=== PATIENT | female | born 1980 | race Hispanic/Latino ===

== ENCOUNTER 2024-10-21 21:58 | Emergency (ER) | payer OTHER ==
--- OUTSIDE RECORDS SUMMARY | 2024-10-21 22:02 | XMS REPORT | Continuity of Care Document ---
Author Name Unknown Address [address] [place] [address] [address]. [address] [place] [address] [facility] Address [address] [facility] [address] [place] [address] Care Team Providers Care Recruiting Specialist Name Role Phone Pcp, Patient Does Not Have A Primary Care Physic michelle Nyla Davis Attending Clinician [phone] NYLA GARCÍA Attending Clinician Unavailable Doctor Unassigned, [place] Attending Clinician U CHER Calderon Attending Clinician Unavailable DORIE BLAKE Attending Clinician UnavailDORIE Carlson Attending Clinician Unavaila alfredo Payers Payer Name Policy Type Policy Number Effective Date Expirati on Date Source HIRAL JOLLY [id number] 2024 00:00:00 Problems Condition Name Condition Details Condition Category Status Onset Date Resolution Date Last Treatment Date Treating Clinician Comments Source Pain pelvic Pain pelvic Disease Active - 00:00: 00 [facility] Dysuria Dysuria Disease Active 8- 00:00: 00 [facility] Nausea Nausea Disease Active 8- 00:00: 00 [facility] History of UTI History of UTI Disease Active 8- 00:00: 00 [facility] Allergies, Adverse Reactions, Alerts Allergy Name Allergy Type Status Severity Reaction(s) Onset Date Inactive Date Treating Clinician Comments Source NO KNOWN ALLERGIE S Drug Class Active [facility] Social History Social Habit Start Date Stop Date Quantity Comments Source ASSERTION Not [facility] of tobacco use Passive smoker [facility] History SDOH Alcohol Frequency [facility] History SDOH Alcohol Std Drinks [facility] History SDOH Alcohol Binge [facility] Alcoholic beverage intake 2024-10-21 00:00:00 2024-10-21 00:00:00 Current drinker of alcohol (finding) [facility] History of Social function 2024-10-21 00:00:00 2024-10-21 00:00:00 [facility] Tobacco use and exposure 2022-01-10 00:00:00 2022-01-10 00:00:00 Smokeless tobacco non-user [facility] Alcohol intake 2022-01-10 00:00:00 2022-01-10 00:00:00 Current drinker of alcohol (finding) [facility] Alcohol Comment 2022-01-10 00:00:00 2022-01-10 00:00:00 occasionally [facility] Sex assigned at 1980 00:00:00 1980 00:00:00 [facility] Smoking Status Start Date Stop Date Source Never smoked tobacco [facility] Medications Ordered Medication Name Filled Medication Name Start Date Stop Date Current Medication? Ordering Clinician Indication Dosage Frequency Signature (SIG) Comments Components Source methocarbam oL (ROBAXIN) tablet 500 mg 10-21 22:00: 00 10-22 09:59 :00 Yes 500mg 500 mg, Oral, ONCE, 1 dose, On Sat10/21/24 at 1700, UBALDO [facility] ciprofloxac in HCl 500 mg tablet 01-04 00:00: 00 Yes TAKE 1 TABLET BY MOUTH TWICE A DAY FOR 10 DAYS [facility] ondansetron 8 mg disintegrat ing tablet 01-04 00:00: 00 Yes PLEASE SEE ATTACHED FOR DETAILED DIRECTIONS [facility] proMETHazin e 25 mg tablet 01-04 00:00: 00 Yes PLEASE SEE ATTACHED FOR DETAILED DIRECTIONS [facility] Vital Signs Vital Name Observation Time Observation Value Comments S ource Systolic blood pressure 2024-10-21 16:52:00 138 mm[Hg] [facility] Diastolic blood pressure 2024-10-21 16:52:00 93 mm[Hg] [facility] Heart rate 2024-10-21 16:52:00 77 /min [facility] Body temperature 2024-10-21 16:52:00 37.28 Jelena [facility] Respiratory rate 2024-10-21 16:52:00 16 /min [facility] Body height 2024-10-21 16:52:00 139.7 cm [facility] Body weight 2024-10-21 16:52:00 56.246 kg [facility] BMI 2024-10-21 16:52:00 28.82 kg/m2 [facility] Oxygen saturation in Arterial blood by Pulse oximetry 2024-10-21 16:52:00 100 /min [facility] Systolic blood pressure 2022-01-10 15:49:00 112 mm[Hg] [facility] Diastolic blood pressure 2022-01-10 15:49:00 72 mm[Hg] [facility] Heart rate 2022-01-10 15:49:00 82 /min [facility] Body temperature 2022-01-10 15:49:00 37 Jelena [facility] Respiratory rate 2022-01-10 15:49:00 16 /min [facility] Body height 2022-01-10 15:49:00 139.7 cm [facility] Body weight 2022-01-10 15:49:00 55.792 kg [facility] BMI 2022-01-10 15:49:00 28.59 kg/m2 [facility] Procedures Procedure Date / Time Performed Performing Clinicia n Source URINALYSIS 2024-10-21 20:00:00 Nyla García [facility] POCT TEST 2024-10-21 19:40:00 Cristina García [facility] HB ECG ROUTINE & RHYTHM STRIP 2024-10-21 18:34:41 Nyla García [facility] TROPONIN I 2024-10-21 18:04:00 Nyla García [facility] COMP. METABOLIC PANEL ([id number]) 2024-10-21 18:04:00 Nyla García [facility] CBC WITH DIFF 2024-10-21 18:04:00 Nyla Garc[facility] N-TERMINAL PRO-BNP 2024-10-21 18:04:00 Emily García [facility] EXTERNAL PROVIDER RECORDS 2022-03-05 05:01:00 Doctor Unassigned, [place] [facility] EXTERNAL PROVIDER RECORDS 2022-01-23 05:01:00 Doctor Unassigned, [place] [facility] URINE CULTURE 2022-01-10 20:07:00 Dorie Blake [facility] Plan of Care Planned Activity Planned Date Details Comments Source Encounters Start Date/Time End Date/Time Encounter Type Admission Type Attending [facility] Facility Care Department Encounter ID Source 2024-10-21 11:55:00 2024-10-21 16:29:00 Emergency Nyla García [facility] 1..840.114 350.1.13.10 4.2.7.2.686 [id number] [facility] 2024-10-21 11:55:00 2024-10-21 16:29:00 Emergency X GARCÍA NYLA [facility] ERT [id number] [facility] 2022-03-05 00:00:00 2022-03-05 00:00:00 Orders Only Doctor Unassigned, [place] [facility] ..840.114 350.1.13.10 4.2.7.2.686 [id number] [facility] 2022-02-02 09:30:00 2022-02-02 09:30:00 Outpatient CHER BHATTI [facility] [id number] [facility] 2022-01-24 10:00:00 2022-01-24 10:00:00 Outpatient DORIE CORNELIUS [facility] [id number] [facility] 2022-01-23 00:00:00 2022-01-23 00:00:00 Orders Only Doctor Unassigned, [place] [facility] 1.840.114 350.1.13.10 4.2.7.2.686 [id number] [facility] 2022-01-12 00:00:00 2022-01-12 00:00:00 [facility] 1.84.114 350.1.13.10 4.2.7.2.686 [id number] [facility] 2022-01-10 10:00:00 2022-01-10 11:23:25 Outpatient R DORIE BLAKE [facility] [id number] [facility] 2022-01-10 10:00:00 2022-01-10 11:23:25 Outpatient R DORIE BLAKE [facility] [id number] [facility] 2022-01-10 10:00:00 2022-01-10 11:23:25 Outpatient R DORIE BLAKE [facility] [id number] [facility] 2022-01-10 10:00:00 2022-01-10 11:23:25 Office Visit Rae [facility] 1..114 350.1.13.10 4.2.7.2.686 [id number] [facility] 2022-01-10 00:00:00 2022-01-10 00:00:00 Letter (Out) Rae [facility] 1.840.114 350.1.13.10 4.2.7.2.686 [id number] [facility] 2021-11-01 00:00:2021-11-01 00:00:00 Orders Only Doctor Unassigned, [place] [facility] 1.2.840.114 350.1.13.10 4.2.7.2.686 [id number] [facility] Results Test Description Test Time Test Comments Results Result Co mments Source [id number] 19:02:54* Test Item Value Reference Range Interpretation Comme nts TROPONIN I (test code = 7988819384) 0.002 ng/mL <=0.034 WALESKA (test code = WALESKA) Reference (Normal) Range (defined by the 99th percentile reference limit): <= 0.034 ng/mL Note: Cardiac troponin begins to rise 3-4 hours after the onset of ischemia. Repeat in 4-6 hours if the sample was drawn within 3-4 hours of the onset of the symptom and found normal. Diagnosis of myocardial injury is made with acute changes in cTn concentrations with at least one serial sample above the 99th percentile upper reference limit (URL), taken together with the patient's clinical presentation. Biotin has been reported to cause a negative bias, interpret results relative to patient's use of biotin. Lab Interpretation (test code = 85109-3) [facility] [id number] 19:00:30* Test Item Value Reference Range Interpretation Comme nts NT-proBNP (test code = 10436-1) 68 pg/mL <=125 Lab Interpretation (test cod e = 11778-2) [facility] ([id number])2024-10-21 18:53:11* Test Item Value Reference Range Interpretation Comme nts NA (test code = 6203397665) 138 mmol/L 135-145 K (test code = 2279611667) 4.2 mmol/L 3.5-5.0 CL (test code = 9315865873) 107 mmol/L 98-108 CO2 TOTAL (test code = 3223537785) 24 mmol/L 23-31 AGAP (test code = 6256316194) 7 2-16 BUN (test code = 6336099274) 5 mg/dL 7-23 L GLUCOSE (test code = 7385779944) 86 mg/dL 70-110 CREATININE (test code = 2160-0) 0.62 mg/dL 0.50-1.04 TOTAL BILI (test code = 8979786731) 0.9 mg/dL 0.1-1.1 CALCIUM (test code = 1047296414) 8.8 mg/dL 8.6-10.6 T PROTEIN (test code = 1238729541) 7.4 g/dL 6.3-8.2 ALBUMIN (test code = 2663696324) 4.3 g/dL 3.5-5.0 ALK PHOS (test code = 1897355169) 59 U/L 34-122 ALTv (test code = 1742-6) 15 U/L 5-35 AST(SGOT) (test code = 7136101640) 21 U/L 13-40 eGFR (test code = 32742-8) 114.2 mL/min/1.73m2 CKD-EPI eGFR (2020). Assuming creatinine has been stable day-to-day for at least three months, the eGFR indicates Category G1 (>= 90 mL/min/1.73 m2) Lab Interpretation (test code = 30603-6) [facility] [id number] 18:38:09* Test Item Value Reference Range Interpretation Comme nts WBC (test code = 6690-2) 5.69 4.30-11.10 RBC (test code = 789-8) 3.73 3.93-5.25 L HGB (test code = 718-7) 12 g/dL 11.6-15.0 HCT (test code = 4544-3) 36.1 % 35.7-45.2 MCV (test code = 787-2) 96.8 fL 80.6-95.5 H MCH (test code = 785-6) 32.2 pg 25.9-32.8 MCHC (test code = 786-4) 33.2 g/dL 31.6-35.1 RDW-SD (test code = 07472-3) 52.3 fL 39.0-49.9 H RDW-CV (test code = 788-0) 14.6 % 12.0-15.5 PLT (test code = 777-3) 308 166-358 MPV (test code = 69347-4) 10 fL 9.5-12.9 NRBC/100 WBC (test code = 0223346926) 0 0.0-10.0 NRBC x10^3 (test code = 3746926976) See_Comment [Automated messa ge] The system which generated this result transmitted reference range: 10*3/?L. The reference range was not used to interpret this result as normal/abnormal. GRAN MAT (NEUT) % (test code = 770-8) 47 % IMM GRAN % (test code = 3666435546) 0.2 % LYMPH % (test code = 736-9) 40.9 % MONO % (test code = 5905-5) 9.8 % EOS % (test code = 713-8) 1.6 % BASO % (test code = 706-2) 0.5 % GRAN MAT x10^3(ANC) (test code = 5667503239) 2.67 10*3/uL 1.88-7.09 IMM GRAN x10^3 (test code = 6212077478) 0.00-0.06 LYMPH x10^3 (test code = 731-0) 2.33 10*3/uL 1.32-3.29 MONO x10^3 (test code = 742-7) 0.56 10*3/uL 0.33-0.92 EOS x10^3 (test code = 711-2) 0.09 10*3/uL 0.03-0.39 BASO x10^3 (test code = 704-7) 0.03 10*3/uL 0.01-0.07 Lab Interpretation (test code = 62025-6) Abnormal [facility] Notes Date/Time Note Provider Source 2024-10-21 16:27:11 Went in to medicate patient, draw repeat labs and get repeat vital signs. Patient states she wants to leave and does not want any medications. Nyla NESBITT notified. Patient signed AMA form. Patient ambulatory with steady gait. Mayte Means RN [facility] 2024-10-21 11:51:27 Patient states: "For the last 2 days I've been having swelling in my face and feet. I feel achyness in my whole body and pinching in my chest" Pmhx: none Leia Rm RN [facility]
[2024-10-21 23:36] LABS: Absolute Eosinophils 0.1 K/uL (0-0.5); Absolute Lymphocytes (CBC) 2.7 K/uL (0.7-4.9); Absolute Monocytes 0.8 K/uL (0.1-1.3); Absolute Neutrophil 3.8 K/uL (1.8-8.0); Basophils % 0.4 % (0-1.3); Eosinophils % 1.8 % (0-4.4); Hematocrit 36.1 % (36.0-45.0); Hemoglobin 12.5 g/dL (12.0-15.0); Lymphocytes % 36.3 % (15.3-44.8); MCH 32.2 pg (27.0-35.0); MCHC 34.5 g/dL (32.0-36.0); MCV 93.2 fL (80-100); MPV 8.1 fL (7.6-11.3); Monocytes % 10.6 % (3.3-12.3); Neutrophils % 50.9 % (41.7-73.7); Nucleated Red Blood Cells % 0.1 % (0-0); Platelets 329 thou/uL (152-406); RBC Red Blood Cell Count 3.88 M/uL (3.86-4.86); Red Cell Distribution Width 15.6 % (12.1-15.2)
[2024-10-22] LABS: ALT/SGPT 22 U/L (13-56); AST/SGOT 16 U/L (15-37); Albumin 3.6 g/dL (3.4-5.0); Alkaline Phosphatase 61 U/L (45-117); Anion Gap 7.7 mEq/L (5.0-15.0); BUN Blood Urea Nitrogen 7 mg/dL (7-18); Bicarbonate 27 mEq/L (21-32); Bilirubin Direct < 0.2 mg/dL (0-0.2); Bilirubin Indirect, Calculated 0.4 mg/dL (0.2-0.8); Bilirubin Total 0.6 mg/dL (0.2-1.0); Globulin 3.7 g/dL (2.3-3.5); Glomerular Filtration Rate 79 ml/min (=/>90); Glucose Level 97 mg/dL (74-106); Magnesium 2.1 mg/dL (1.6-2.4); NT PRO-BNP 51 pg/mL (<125); Potassium 3.7 mEq/L (3.5-5.1); Protein, Total 7.3 g/dL (6.4-8.2); Sodium Level 139 mEq/L (136-145); Troponin High Sensitivity 4.5 pg/mL (<58.9)
[2024-10-22 00:05] LABS: Influenza A Ag Negative; Influenza B Ag Negative; SARS-CoV-2 Antigen Rapid Res Negative (Negative)
--- NOTE | 2024-10-22 00:17 | ER ---
Nurse's Notes [facility] Name: Elena Gracia Age: 44 yrs Sex: Female : 1980 Arrival Date: 10/21/2024 Time: 21:58 Bed 2 Private MD: Diagnosis: Joint aches, joint swelling Presentation: 10/21 22:57 Chief complaint: Patient states: since yesterday i have been feeling weak with body kd3 aches and chills. I have some pain when i breath and swelling in my hands and feet. Coronavirus screen: Vaccine status: unknown. Ebola Screen: No symptoms or risks identified at this time. Initial Sepsis Screen: Does the patient meet any 2 criteria? No. Patient's initial sepsis screen is negative. Does the patient have a suspected source of infection? No. Patient's initial sepsis screen is negative. Risk Assessment: Do you want to hurt yourself or someone else? Patient reports no desire to harm self or others. Onset of symptoms was October 20, 2024. 22:57 Method Of Arrival: Ambulatory kd3 23:02 Acuity: RAMA 3 kd3 Triage Assessment: 23:02 General: Appears in no apparent distress. Behavior is calm, cooperative. Pain: kd3 Complains of pain in chest. GI: No deficits noted. 23:05 GI: Reports cramping. 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 - Infectious Disease History:: Denies. - Social history:: Smoking status: unknown. Screenin/14 23:04 [facility] ED Fall Risk Assessment (Adult) History of falling in the last 3 months, kd3 including since admission No falls in past 3 months (0 pts) Confusion or Disorientation No (0 pts) Intoxicated or Sedated No (0 pts) Impaired Gait No (0 pts) Mobility Assist Device Used No (0 pt) Altered Elimination No (0 pt) Score/Fall Risk Level 0 - 2 = Low Risk Oriented to surroundings. Abuse screen: Denies threats or abuse. Denies injuries from another. Nutritional screening: No deficits noted. Tuberculosis screening: No symptoms or risk factors identified. Assessment: 23:05 GI: Abdomen is non-distended. kd3 Vital Signs: 22:57 Weight 56.25 kg; Height 4 ft. 6 in. ; kd3 23:02 BP 130 / 78; Pulse 68; Resp 16; Temp 98.2(O); Pulse Ox 100% ; kd3 10/22 00:07 BP 109 / 78; Pulse 76; Resp 16; Pulse Ox 99% on R/A; kd3 10/21 22:57 Body Mass Index 28.82 (56.25 kg, 139.7 cm) kd3 ED Course: 10/21 22:08 Patient arrived in ED. gm2 22:14 Walter Lackey MD is Attending Physician. sp3 22:52 Mable Donahue, RN is Primary Nurse. kd3 23:02 Arm band placed on right wrist. kd3 23:03 Triage completed. kd3 23:05 Patient has correct armband on for positive identification. kd3 23:17 CRP Sent. kd3 23:17 COVID-19 Ag + Flu A+B Ag Sent. kd3 23:18 Basic Metabolic Panel Sent. kd3 23:18 CBC with Diff Sent. kd3 23:18 LFT's Sent. kd3 23:18 Magnesium Sent. kd3 23:18 NT PRO-BNP Sent. kd3 23:18 Troponin HS Sent. kd3 23:18 Inserted saline lock: 20 gauge in right antecubital area, using aseptic technique. kd3 Blood collected. Flushed with 10 mL NS. 23:59 XRAY Chest (1 view) In Process Unspecified. EDMS 10/22 00:22 Provided Education on: follow ups. kd3 00:22 No provider procedures requiring assistance completed. IV discontinued, intact, kd3 bleeding controlled, No redness/swelling at site. Pressure dressing applied. Administered Medications: No medications were administered Medication: 10/21 23:05 VIS not applicable for this client. kd3 Outcome: 10/22 00:17 Discharge ordered by . sp3 00:22 Discharged to home ambulatory, with family, kd3 00:22 Condition: stable 00:22 Discharge instructions given to patient, family, Instructed on discharge instructions, follow up and referral plans. Demonstrated understanding of instructions, follow-up care, 00:23 Patient left the ED. kd3 Signatures: Dispatcher [employer] EDCA Walter Lackey MD MD sp3 Mable Donahue, DORCAS RN kd3 Janina Orozco gm2
--- NOTE | 2024-10-22 00:17 | EDPHYS ---
Physician Documentation [facility] Name: Elena Gracia Age: 44 yrs Sex: Female : 1980 Arrival Date: 10/21/2024 Time: 21:58 Bed 2 Private MD: ED Physician Walter Lackey HPI: 10/21 23:14 This 44 yrs old Female presents to ER via Ambulatory with complaints of Pain sp3 All Over, Nausea, Weakness, Dizziness. 23:14 44-year-old female with no known past medical history presents with body wide pain, sp3 general fatigue and feelings of swollen extremities. [facility] [place] where she states they did blood work and an x-ray and told her that everything was normal. She states she also feels some anxiety. She denies any fever, trauma, specific pain in her body other than generalized bodyaches. ROS otherwise negative. Patient also states that her daughter has been diagnosed with lupus and she feels like she may have it as well. 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 - Infectious Disease History:: Denies. - Social history:: Smoking status: unknown. ROS: 10/21 23:15 Eyes: Negative for injury, pain, redness, and discharge, ENT: Negative for injury, sp3 pain, and discharge, Neck: Negative for injury, pain, and swelling, Respiratory: Negative for shortness of breath, cough, wheezing, and pleuritic chest pain, Abdomen/GI: Negative for abdominal pain, nausea, vomiting, diarrhea, and constipation, Skin: Negative for injury, rash, and discoloration, Neuro: Negative for headache, weakness, numbness, tingling, and seizure, Psych: Negative for depression, anxiety, suicide ideation, homicidal ideation, and hallucinations, All other systems are negative, Exam: 23:16 Constitutional: This is a well developed, well nourished patient who is awake, alert, sp3 and in no acute distress. Head/Face: Normocephalic, atraumatic. Eyes: Pupils equal round and reactive to light, extra-ocular motions intact. Lids and lashes normal. Conjunctiva and sclera are non-icteric and not injected. Cornea within normal limits. Periorbital areas with no swelling, redness, or edema. ENT: Nares patent. No nasal discharge, no septal abnormalities noted. External auditory canals are clear. Oropharynx with no redness, swelling, or masses, exudates, or evidence of obstruction, uvula midline. Mucous membranes moist. Neck: Trachea midline, no thyromegaly or masses palpated, and no cervical lymphadenopathy. Supple, full range of motion without nuchal rigidity, or vertebral point tenderness. No Meningismus. Chest/axilla: Normal chest wall appearance and motion. Nontender with no deformity. No lesions are appreciated. Cardiovascular: Regular rate and rhythm with a normal S1 and S2. No gallops, murmurs, or rubs. Normal PMI, no JVD. No pulse deficits. Respiratory: Lungs have equal breath sounds bilaterally, clear to auscultation and percussion. No rales, rhonchi or wheezes noted. No increased work of breathing, no retractions or nasal flaring. Abdomen/GI: Soft, non-tender, with normal bowel sounds. No distension or tympany. No guarding or rebound. No evidence of tenderness throughout. Back: No spinal tenderness. No costovertebral tenderness. Full range of motion. Skin: Warm, dry with normal turgor. Normal color with no rashes, no lesions, and no evidence of cellulitis. MS/ Extremity: Pulses equal, no cyanosis. Neurovascular intact. Full, normal range of motion. Neuro: Awake and alert, GCS 15, oriented to person, place, time, and situation. Cranial nerves II-XII grossly intact. Motor strength 5/5 in all extremities. Sensory grossly intact. Cerebellar exam normal. Normal gait. Psych: Awake, alert, with orientation to person, place and time. Behavior, mood, and affect are within normal limits. 23:16 ECG was reviewed by the Attending Physician. EKG demonstrates normal sinus rhythm at 66 bpm with normal intervals, normal QRS, normal axis, normal ST/T-segment's without evidence of acute ischemia. Normal EKG. Vital Signs: 22:57 Weight 56.25 kg; Height 4 ft. 6 in. ; kd3 23:02 BP 130 / 78; Pulse 68; Resp 16; Temp 98.2(O); Pulse Ox 100% ; 3 10/22 00:07 BP 109 / 78; Pulse 76; Resp 16; Pulse Ox 99% on R/A; [facility] 10/21 22:57 Body Mass Index 28.82 (56.25 kg, 139.7 cm) [facility] MDM: 10/21 22:54 Medical Screening Exam initiated sp3 23:17 Data reviewed: vital signs, nurses notes, lab test result(s), EKG, radiologic studies. 3 ED course: 44-year-old female with body wide aches, peripheral swelling not currently visible, and generalized weakness. Differential diagnosis includes electrolyte abnormality, other inflammatory process including rheumatological spectrum, ACS (not highly suspicious of), viral illness including flu and/or COVID, among others. Workup will include chest x-ray, EKG, general labs, viral swabs and general supportive care. CRP also pending. If workup negative we will safely discharge patient home at this time.. 10/22 00:16 ED course: Full workup negative. Will refer to rheumatology in [place]. Vital signs 3 remain normal.. 10/21 23:03 Order name: Basic Metabolic Panel; Complete [facility] 10/21 23:03 Order name: CBC with Diff; Complete Time: 00:06 [facility] 10/21 23:03 Order name: LFT's; Complete Time: 00:06 [facility] 10/21 23:03 Order name: Magnesium; Complete Time: 00:06 [facility] 10/21 23:03 Order name: NT PRO-BNP; Complete Time: 00:06 [facility] 10/21 23:03 Order name: Troponin HS; Complete Time: 00:06 [facility] 10/21 23:03 Order name: COVID-19 Ag + Flu A+B Ag; Complete Time: 00:06 [facility] 10/21 23:07 Order name: CRP; Complete Time[facility] 00:06 [facility] 10/21 23:03 Order name: XRAY Chest (1 view) [facility] 10/21 23:03 Order name: EKG; Complete Time: 23:03 [facility] 10/21 23:03 Order name: Cardiac monitoring; Complete Time: 23:17 [facility] 10/21 23:03 Order name: EKG - Nurse/Tech; Complete Time: 23:18 [facility] 10/21 23:03 Order name: IV Saline Lock; Complete Time: 23:18 sp3 10/21 23:03 Order name: Labs collected and sent; Complete Time: 23:18 sp3 10/21 23:03 Order name: O2 Per Protocol; Complete Time: 23:18 sp3 10/21 23:03 Order name: O2 Sat Monitoring; Complete Time: 23:18 sp3 Administered Medications: No medications were administered Disposition Summary: 10/22/24 00:17 Discharge Ordered Notes: Location: Home sp3 Condition: Stable sp3 Diagnosis - Joint aches, joint swelling sp3 Followup: sp3 - With: Private Physician - When: Upon discharge from the Emergency Department - Reason: Continuance of care Discharge Instructions: - Discharge Summary Sheet sp3 - Joint Pain sp3 Forms: - Medication Reconciliation Form sp3 - Antibiotic Education sp3 - Prescription Opioid Use sp3 - Patient Portal Instructions sp3 - Leadership Thank You Letter sp3 Signatures: Dispatcher [employer] Walter Villanueva MD MD sp3 Mable Donahue RN RN kd3 Corrections: (The following items were deleted from the chart) 10/21 23:03 23:03 Chest Single View+RAD.RAD.BRZ ordered. [facility] EDTN 23:16 23:14 44-year-old female with no known past medical history presents with body wide sp3 pain, general fatigue and feelings of swollen extremities. Patient was [facility] in [place] where she states they did blood work and an x-ray and told her that everything was normal. She states she also feels some anxiety. She denies any fever, trauma, specific pain in her body other than generalized bodyaches. ROS otherwise negative.. sp3
[2024-10-22 01:29] VITALS: TEMP 98.2
[2024-10-22 01:30] VITALS: BP 109/78; O2SAT 99
--- NOTE | 2024-10-22 06:07 | RAD REPORT ---
EXAM: ONE VIEW CHEST X-RAY INDICATION: "WEAK ALL OVER". 44-year-old female. COMPARISON: No relevant imaging studies FINDINGS: A single AP upright view of the chest was obtained. No consolidation, pulmonary venous hypertension, pneumothorax, or significant pleural effusion. Cardiac silhouette is normal in size. No acute osseous abnormality. Cardiac monitoring leads overlie the chest. IMPRESSION: 1. No acute cardiopulmonary process. Electronically signed by: Galileo Stahl MD 10/22/2024 12:10 AM CDT Due to temporary technical issues with the PACS/[employer] reporting system, reports are being adonis d by the in-house radiologist without review as a courtesy to ensure prompt reporting the interpreting radiologist is fully responsible for the content of the report. Transcribed Date/Time: 10/22/2024 6:07 AM
--- NOTE | 2024-10-26 16:58 | EKG ---
Test Date: 2024-10-21 Test Time: 23:11:56 Spinning Lathe Operator: FREEDOM MEASUREMENT RESULTS: Intervals: Rate: 66 ID: [id number] QRSD: 70 QT: 400 QTc: 419 Alviso: P: 47 ID: [id number] QRS: 41 T: 40 INTERPRETIVE STATEMENTS: Normal sinus rhythm Normal ECG No previous ECG available for comparison Electronically Signed On 10-26-24 16:51:44 CDT by Johnnie Garcia
== END 2024-10-22 00:23 | disposition home or self-care (01) ==
LOC: ER 21:58
DX: M25.50 Pain in unspecified joint (principal); M25.40 Effusion, unspecified joint; R11.0 Nausea; R53.83 Other fatigue; R53.1 Weakness; Z11.52 Encounter for screening for COVID-19
CPT/HCPCS: 36415; 71045; 80048; 80076; 83735; 83880; 84484; 85025; 86140; 87428; 93005; 99283

== ENCOUNTER 2025-03-16 21:43 | Emergency (ER) | payer OTHER ==
--- OUTSIDE RECORDS SUMMARY | 2025-03-16 21:46 | XMS REPORT | Continuity of Care Document ---
Author Name Unknown Address [address] [place] [address] 1 [address] [place] [address] [facility] Address [address] [place] [address] [address] [place] [address] Care Team Providers Care Cad Drafter Name Role Phone PCP, PATIENT DOES NOT HAVE A Primary Care Physic NYLA Chung Attending Clinician Unavailable Doctor Unassigned, [place] Attending Clinician U CHER Calderon Attending Clinician DORIE Rush Attending Clinician DORIE Humphries Attending Clinician NYLA Georges Admitting Clinician Unavailable Payers Payer Name Policy Type Policy Number Effective Date Expirati on Date Source HIRAL RAPHAELKatelyn [id number] 2024 00:00:00 Problems Condition Name Condition Details Condition Category Status Onset Date Resolution Date Last Treatment Date Treating Clinician Comments Source Pain pelvic Pain pelvic Disease Active - 00:00: 00 [facility] Dysuria Dysuria Disease Active 8- 00:00: 00 [facility] Nausea Nausea Disease Active 8- 00:00: 00 [facility] History of UTI History of UTI Disease Active 8- 00:00: 00 [facility] Allergies, Adverse Reactions, Alerts Allergy Name Allergy Type Status Severity Reaction(s) Onset Date Inactive Date Treating Clinician Comments Source NO KNOWN ALLERGIE S Drug Class Active [facility] Social History Social Habit Start Date Stop Date Quantity Comments Source ASSERTION Not [facility] of tobacco use Passive smoker [facility] History SDOH Alcohol Frequency [facility] History SDOH [facility] History SDOH Alcohol Binge [facility] Alcoholic beverage intake 2024-10-21 00:00:00 2024-10-21 00:00:00 Current drinker of alcohol (finding) [facility] History of Social function 2024-10-21 00:00:00 2024-10-21 00:00:00 [facility] Alcohol Comment 2022-01-10 00:00:00 2022-01-10 00:00:00 occasionally [facility] Tobacco use and exposure 2022-01-10 00:00:00 2022-01-10 00:00:00 Smokeless tobacco non-user [facility] Alcohol intake 2022-01-10 00:00:00 2022-01-10 00:00:00 Current drinker of alcohol (finding) [facility] Sex assigned at 1980 00:00:00 1980 00:00:00 [facility] Smoking Status Start Date Stop Date Source Never smoked tobacco [facility] Medications Ordered Medication Name Filled Medication Name Start Date Stop Date Current Medication? Ordering Clinician Indication Dosage Frequency Signature (SIG) Comments Components Source methocarbam oL (ROBAXIN) tablet 500 mg 10-21 22:00: 00 10-22 09:59 :00 No 500mg 500 mg, Oral, ONCE, 1 dose, On Sat10/21/24 at 1700, UBALDO [facility] ciprofloxac in HCl 500 mg tablet 01-04 00:00: 00 Yes TAKE 1 TABLET BY MOUTH TWICE A DAY FOR 10 DAYS [facility] ondansetron 8 mg disintegrat ing tablet 01-04 00:00: 00 Yes PLEASE SEE ATTACHED FOR DETAILED DIRECTIONS [facility] proMETHazin e 25 mg tablet 01-04 00:00: 00 Yes PLEASE SEE ATTACHED FOR DETAILED DIRECTIONS [facility] Vital Signs Vital Name Observation Time Observation Value Comments S ource Systolic blood pressure 2024-10-21 16:52:00 138 mm[Hg] [facility] Diastolic blood pressure 2024-10-21 16:52:00 93 mm[Hg] [facility] Heart rate 2024-10-21 16:52:00 77 /min [facility] Body temperature 2024-10-21 16:52:00 37.28 Jelena [facility] Respiratory rate 2024-10-21 16:52:00 16 /min [facility] Body height 2024-10-21 16:52:00 139.7 cm [facility] Body weight 2024-10-21 16:52:00 56.246 kg [facility] BMI 2024-10-21 16:52:00 28.82 kg/m2 [facility] Oxygen saturation in Arterial blood by Pulse oximetry 2024-10-21 16:52:00 100 /min [facility] Systolic blood pressure 2022-01-10 15:49:00 112 mm[Hg] [facility] Diastolic blood pressure 2022-01-10 15:49:00 72 mm[Hg] [facility] Heart rate 2022-01-10 15:49:00 82 /min [facility] Body temperature 2022-01-10 15:49:00 37 Jelena [facility] Respiratory rate 2022-01-10 15:49:00 16 /min [facility] Body height 2022-01-10 15:49:00 139.7 cm [facility] Body weight 2022-01-10 15:49:00 55.792 kg [facility] BMI 2022-01-10 15:49:00 28.59 kg/m2 [facility] Procedures Procedure Date / Time Performed Performing Clinicia n Source URINALYSIS 2024-10-21 20:00:00 Nyla García [facility] POCT TEST 2024-10-21 19:40:00 Cristina García [facility] HB ECG ROUTINE & RHYTHM STRIP 2024-10-21 18:34:41 Nyla García [facility] TROPONIN I 2024-10-21 18:04:00 Nyla García [facility] COMP. METABOLIC PANEL ([id number]) 2024-10-21 18:04:00 Nyla García [facility] CBC WITH DIFF 2024-10-21 18:04:00 Nyla García [facility] N-TERMINAL PRO-BNP 2024-10-21 18:04:00 Emily García [facility] EXTERNAL PROVIDER RECORDS 2022-03-05 05:01:00 Doctor Unassigned, [place] [facility] EXTERNAL PROVIDER RECORDS 2022-01-23 05:01:00 Doctor Unassigned, [place] [facility] URINE CULTURE 2022-01-10 20:07:00 Dorie Blake [facility] Encounters Start Date/Time End Date/Time Encounter Type Admission Type Attending [facility] Care Department Encounter ID Source 2024-10-21 11:55:00 2024-10-21 16:29:00 Emergency X NYLA GARCÍA [facility] ERT [id number] [facility] 2024-10-21 11:55:00 2024-10-21 16:29:00 Emergency X EMILY GARCÍAVA [facility] ERT [id number] [facility] 2022-03-05 00:00:00 2022-03-05 00:00:00 Orders Only Doctor Unassigned, [place] [id number] [id number] [facility] 2022-02-02 09:30:00 2022-02-02 09:30:00 Outpatient R CHER ELLIS [facility] [id number] [facility] 2022-01-24 10:00:00 2022-01-24 10:00:00 Outpatient R DORIE BLAKE CHERYAL [facility] [id number] [facility] 2022-01-23 00:00:00 2022-01-23 00:00:00 Orders Only Doctor Unassigned, [place] [id number] [id number] [facility] 2022-01-12 00:00:00 2022-01-12 00:00:00 [facility] [id number] [id number] [id number] [id number] [facility] 2022-01-10 10:00:00 2022-01-10 11:23:25 Outpatient R [facility] [id number] [facility] 2022-01-10 10:00:00 2022-01-10 11:23:25 Outpatient R BRIANTRUPTIZABRINADORIE GA [facility] [id number] [facility] 2022-01-10 10:00:00 2022-01-10 11:23:25 Out[facility] [id number] [facility] 2022-01-10 10:00:00 2022-01-10 11:23:25 Office Visit Briantruptizabrinasury [facility] [id number] [id number] [id number] [id number] [facility] 2022-01-10 00:00:00 2022-01-10 00:00:00 Letter (Out) Rae [facility] [id number] [id number] 4.2.7.2.686 [id number] [facility] 2021-11-01 00:00:00 2021-11-01 00:00:00 Orders Only Doctor Unassigned, [place] [facility] [id number] [id number] [id number] [id number] [facility] Results Test Description Test Time Test Comments Results Result Co mments Source [id number] 19:02:54* Test Item Value Reference Range Interpretation Comme nts TROPONIN I (test code = 4143285959) 0.002 ng/mL <=0.034 WALESKA (test code = [...] of biotin. Lab Interpretation (test code = 92606-5) Normal [facility] [id number] 19:00:30* Test Item Value Reference Range Interpretation Comme nts NT-proBNP (test code = 66721-1) 68 pg/mL <=125 Lab Interpretation (test cod e = 80915-1) Normal [facility] PAN[facility] (07075)2024-10-21 18:53:11* Test Item Value Reference Range Interpretation Comme nts NA (test code = 4767691808) 138 mmol/L 135-145 K (test code = 2777550805) 4.2 mmol/L 3.5-5.0 CL (test code = 4625283419) 107 mmol/L 98-108 CO2 TOTAL (test code = 2498663729) 24 mmol/L 23-31 AGAP (test code = 9072945612) 7 2-16 BUN (test code = 6454366727) 5 mg/dL 7-23 L GLUCOSE (test code = 9239049236) 86 mg/dL 70-110 CREATININE (test code = 2160-0) 0.62 mg/dL 0.50-1.04 TOTAL BILI (test code = 6506434881) 0.9 mg/dL 0.1-1.1 CALCIUM (test code = 5945216693) 8.8 mg/dL 8.6-10.6 T PROTEIN (test code = 1662889368) 7.4 g/dL 6.3-8.2 ALBUMIN (test code = 2022851445) 4.3 g/dL 3.5-5.0 ALK PHOS (test code = 4874904402) 59 U/L 34-122 ALTv (test code = 1742-6) 15 U/L 5-35 AST(SGOT) (test code = 6641903760) 21 U/L 13-40 eGFR (test code = 71827-8) 114.2 mL/min/1.73m2 CKD-EPI eGFR (2020). Assuming creatinine has been stable day-to-day for at least three months, the eGFR indicates Category G1 (>= 90 mL/min/1.73 m2) Lab Interpretation (test code = 41381-1) Abnormal General acute hospital WITH [id number] 18:38:09* Test Item Value Reference Range Interpretation [...] 33.2 g/dL 31.6-35.1 RDW-SD (test code = 09808-5) 52.3 fL 39.0-49.9 H RDW-CV (test code = 788-0) 14.6 % 12.0-15.5 PLT (test code = 777-3) 308 166-358 MPV (test code = 59224-6) 10 fL 9.5-12.9 NRBC/100 WBC (test code = 6268449205) 0 0.0-10.0 NRBC x10^3 (test code = 8316767354) See_Comment [Automated messa ge] The system which generated this result transmitted reference range: 10*3/?L. The reference range was not used to interpret this result as normal/abnormal. GRAN MAT (NEUT) % (test code = 770-8) 47 % IMM GRAN % (test code = 6224416495) 0.2 % LYMPH % (test code = 736-9) 40.9 % MONO % (test code = 5905-5) 9.8 % EOS % (test code = 713-8) 1.6 % BASO % (test code = 706-2) 0.5 % GRAN MAT x10^3(ANC) (test code = 8129176541) 2.67 10*3/uL 1.88-7.09 IMM GRAN x10^3 (test code = 0762667782) 0.00-0.06 LYMPH x10^3 (test code = 731-0) 2.33 10*3/uL 1.32-3.29 MONO x10^3 (test code = 742-7) 0.56 10*3/uL 0.33-0.92 EOS x10^3 (test code = 711-2) 0.09 10*3/uL 0.03-0.39 BASO x10^3 (test code = 704-7) 0.03 10*3/uL 0.01-0.07 Lab Interpretation (test code = 70203-7) Abnormal [facility] Notes Date/Time Note Provider Source 2024-10-21 16:27:11 Went in to medicate patient, draw repeat labs and get repeat vital signs. Patient states she wants to leave and does not want any medications. Nyla NESBITT notified. Patient signed AMA form. Patient ambulatory with steady gait. Mayte Means RN [facility] 2024-10-21 11:51:27 Patient states: "For the last 2 days I've been having swelling in my face and feet. I feel achyness in my whole body and pinching in my chest" Pmhx: none Leia Rm RN [facility]
[2025-03-16] MEDS ORDERED: ONDANSETRON 4 MG/2 ML VIAL ONE (22:17)
[2025-03-16] MEDS ORDERED: NA CHLORIDE 0.9% 1,000 ML ONE (22:18)
[2025-03-16] MEDS ORDERED: FAMOTIDINE 20 MG/2 ML VIAL IV ONE (22:18)
[2025-03-16] MEDS ORDERED: DIAZEPAM 5 MG TABLET ONE (22:18)
[2025-03-16] MEDS ORDERED: MORPHINE 4 MG/ML SYR ONE (22:18)
--- NOTE | 2025-03-16 22:20 | RAD REPORT ---
EXAM: Chest Single View HISTORY: 44 years Female CHEST PAIN COMPARISON: 10/21/2024 FINDINGS: LUNGS/PLEURA: The lungs are clear. No pleural effusions or pneumothorax. No pulmonary edema. CARDIAC/MEDIASTINUM: The cardiac silhouette is within normal limits. UPPER ABDOMEN: No significant abnormality. BONES: No acute abnormality. LINES/TUBES/OTHER: N/A IMPRESSION: No evidence of acute cardiopulmonary disease.
[2025-03-16 22:51] LABS: Absolute Lymphocytes (CBC) 3.0 K/uL (0.7-4.9); Hematocrit 36.1 % (36.0-45.0); Hemoglobin 12.5 g/dL (12.0-15.0); MCH 32.0 pg (27.0-35.0); MCHC 34.5 g/dL (32.0-36.0); MCV 92.5 fL (80-100); MPV 7.9 fL (7.6-11.3); Nucleated RBC Absolute Count 0.0 (0-0); Nucleated Red Blood Cells % 0.2 % (0-0); PT Prothrombin Time 12.1 SECONDS (10-13.0); Protime INR 1.07; RBC Red Blood Cell Count 3.91 M/uL (3.86-4.86); White Blood Count 8.60 thou/uL (4.3-10.9)
[2025-03-16 23:11] LABS: ALT/SGPT 25 U/L (13-56); AST/SGOT 16 U/L (15-37); Albumin 3.7 g/dL (3.4-5.0); Albumin/Globulin Ratio 0.9 (1.1-1.8); Alkaline Phosphatase 64 U/L (45-117); Anion Gap 11.2 mEq/L (5.0-15.0); BUN Blood Urea Nitrogen 7 mg/dL (7-18); Globulin 4.0 g/dL (2.3-3.5); Glucose Level 101 mg/dL (74-106); Magnesium 2.0 mg/dL (1.6-2.4); NT PRO-BNP 11 pg/mL (<125); Potassium 3.2 mEq/L (3.5-5.1); Troponin High Sensitivity 3.7 pg/mL (<58.9)
[2025-03-16 23:12] LABS: Bilirubin Indirect, Calculated 0.3 mg/dL (0.2-0.8)
[2025-03-16 23:13] LABS: Thyroid Stimulating Hormone 2.5 uIU/mL (0.358-3.740)
[2025-03-17] MEDS ORDERED: METOCLOPRAMIDE 10 MG/2mL INJ ONE (01:52)
[2025-03-17] MEDS ORDERED: KETOROLAC 30 MG/ML INJ ONE (01:53)
--- NOTE | 2025-03-17 02:47 | RAD REPORT ---
CT HEAD WITHOUT IV CONTRAST INDICATION: Headache. COMPARISON: None TECHNIQUE: CT images of the head were obtained without contrast. Multiplanar reformats were provided. Dose lowering techniques such as automated exposure control, iterative reconstruction, and mA and/or kV adjustment for patient size was utilized for this examination. FINDINGS: PARENCHYMA: No acute arterial territory infarct. No acute intracranial hemorrhage. No mass effect or midline shift. VENTRICLES: Normal in size for patient's age. EXTRA-AXIAL: No focal collection. Patent basilar cisterns. ORBITS: Unremarkable. BONES: No acute finding. PARANASAL SINUSES/MASTOIDS/MIDDLE EARS: Clear. SOFT TISSUES: No acute findings. OTHER: None. IMPRESSION: No acute intracranial abnormality. Electronically signed by: Anushka Mendieta MD 03/17/2025 02:44 AM CDT Due to temporary technical issues with the [employer]ACS[employer] reporting system, reports are being adonis d by the in-house radiologist without review as a courtesy to ensure prompt reporting the interpreting radiologist is fully responsible for the content of the report. Transcribed Date/Time: 03/17/2025 2:47 AM
--- NOTE | 2025-03-17 04:00 | EDPHYS ---
Physician Documentation [facility] Name: Elena Gracia Age: 44 yrs Sex: Female : 1980 Arrival Date: 03/16/2025 Time: 21:43 Bed IW10 Private MD: ED Physician Smith Pitt HPI: 03/16 21:49 This 44 yrs old Female presents to ER via Unassigned with complaints of chest sp4 pain . 03/17 20:23 54-year-old female presents with complaint of acute onset chest pain sp4 associated with anxiety, emotional upset, and a headache. Reports bilateral hand numbness. . 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 - Infectious Disease History:: Denies. - Family history:: not pertinent. - Social history:: Smoking status: Patient denies any tobacco usage or history of. Patient uses alcohol, occasionally. Patient/guardian denies using tobacco products. ROS: 03/17 20:31 Constitutional: Negative for fever, chills, and weight loss, positive for chest pain sp4 and emotional upset, positive for headache All other systems are negative, Exam: 20:31 Constitutional: This is a well developed, well nourished patient who is awake, alert, sp4 and in no acute distress. Head/Face: Normocephalic, atraumatic. Eyes: Pupils equal round and reactive to light, extra-ocular motions intact. Lids and lashes normal. Conjunctiva and sclera are not injected. Cornea within normal limits. Periorbital areas with no swelling, redness, or edema. ENT: Nares patent. No nasal discharge, no septal abnormalities noted. Tympanic membranes are normal and external auditory canals are clear. Oropharynx with no redness, swelling, or masses, exudates, or evidence of obstruction, uvula midline. Mucous membranes moist. Neck: Trachea midline, no thyromegaly or masses palpated, and no cervical lymphadenopathy. Supple, full range of motion without nuchal rigidity, or vertebral point tenderness. Chest/axilla: Normal chest wall appearance and motion. Nontender with no deformity. No lesions are appreciated. Cardiovascular: Regular rate and rhythm with a normal S1 and S2. No gallops, murmurs, or rubs. No pulse deficits. Respiratory: Lungs have equal breath sounds bilaterally, clear to auscultation and percussion. No rales, rhonchi or wheezes noted. No increased work of breathing, no retractions or nasal flaring. Abdomen/GI: Soft, with normal bowel sounds. No distension or tympany. No guarding or rebound. No evidence of tenderness throughout. Back: No spinal tenderness. No costovertebral tenderness. Skin: Warm, dry with normal turgor. Normal color with no rashes, no lesions, and no evidence of cellulitis. MS/ Extremity: Pulses equal, no cyanosis. Neurovascular intact. Full, normal range of motion. Neuro: Awake and alert, GCS 15, oriented to person, place, time, and situation. Cranial nerves II-XII grossly intact. Motor strength 5/5 in all extremities. Sensory grossly intact. Psych: Awake, alert, with orientation to person, place and time. Behavior, mood, and affect are within normal limits 20:31 ECG was reviewed by the Attending Physician. EKG at 2305 normal sinus rhythm normal EKG. Rate 83 Vital Signs: 03/16 22:00 BP 124 / 82; Pulse 85; Resp 17; Temp 99.1(O); Pulse Ox 96% on R/A; Weight 55.34 kg (R); tb4 Height 4 ft. 6 in. ; Pain 10/10; 23:18 BP 125 / 85; Pulse 88; Resp 16; Temp 99.2(O); Pulse Ox 97% on R/A; tb4 10 00:00 BP 118 / 82; Pulse 95; Resp 15; Pulse Ox 98% ; vc1 01:00 BP 103 / 65; Pulse 75; Resp 18; Pulse Ox 100% on R/A; tb4 02:08 BP 111 / 68; Pulse 91; Resp 16; Pulse Ox 100% on R/A; tb4 03:00 BP 95 / 61; Pulse 72; Resp 17; Pulse Ox 98% on R/A; Pain 6/10; tb4 04:54 BP 97 / 64; Pulse 88; Resp 19; Pulse Ox 97% on R/A; tb4 03/16 22:00 Body Mass Index 28.36 (55.34 kg, 139.7 cm) tb4 03/16 22:00 Pain Scale: Adult tb4 03:00 Pain Scale: Adult tb4 [place] Coma Score: 20:31 Eye Response: spontaneous(4). Motor Response: obeys commands(6). Verbal Response: sp4 oriented(5). Total: 15. MDM: 03/16 22:11 Medical Screening Exam initiated sp4 03/17 20:35 Differential diagnosis: acute pericarditis, anxiety, coronary artery disease chest wall sp4 pain, congestive heart failure esophagitis, gastritis, gastroesophageal reflux disease (GERD). HEART Score: History: Slightly Suspicious (0), ECG: Normal (0), Age: < or = 45 years (0), Risk Factors: No Risk Factors Known (0), Troponin: < or = 1 x Normal Limit (0), Total Score = 0. The patient was not given aspirin in the Emergency Department. Administered by EMS. Data reviewed: vital signs, nurses notes, EMS record, lab test result(s), EKG, radiologic studies, CT scan, plain films. Consideration of Admission/Observation Escalation of care including admission/observation considered. ED course: Patient has unremarkable workup to date. Symptoms likely secondary to the acute anxiety attack. Patient prescribed as needed Valium. . 03/16 21:50 Order name: Basic Metabolic Panel; Complete Time: 00: [facility] 03/16 21:50 Order name: CBC with Diff; Complete Time: 00: [facility] 03/16 21:50 Order name: LFT's; Complete Time: 00: 4 03/16 21:50 Order name: Magnesium; Complete Time: 00: [facility] 03/16 21:50 Order name: NT PRO-BNP; Complete Time: 00: [facility] 03/16 21:50 Order name: PT-INR; Complete Time: 00: 4 03/16 21:50 Order name: Troponin HS; Complete Time: 00:29 4 03/16 21:59 Order name: TSH; Complete Time: 00: [facility] 03/16 21:59 Order name: T4 Free; Complete Time: 00: 4 03/16 22:16 Order name: Test, Serum; Complete Time: 00:29 cp4 03/17 00:37 Order name: Troponin High Sensitivity; Complete Time: 02:24 sp4 03/16 21:50 Order name: XRAY Chest (1 view); Complete Time: 00:29 sp4 03/17 00:37 Order name: CT Head Brain wo Cont; Complete Time: 03:47 sp4 03/16 21:50 Order name: Cardiac monitoring; Complete Time: 23:16 sp4 03/16 21:50 Order name: EKG - Nurse/Tech; Complete Time: 23:16 sp4 03/16 21:50 Order name: IV Saline Lock; Complete Time: 22:32 sp4 03/16 21:50 Order name: Labs collected and sent; Complete Time: 22:32 sp4 03/16 21:50 Order name: O2 Per Protocol; Complete Time: 22:32 sp4 03/16 21:50 Order name: O2 Sat Monitoring; Complete Time: 22:32 sp4 EC/07 23:05 Rate is 83 beats/min. Rhythm is regular, Normal Sinus Rhythm. QRS [facility] is Normal. OR sp4 interval is normal. QRS interval is normal. QT interval is normal. No Q waves. T waves are Normal. No ST changes noted. Clinical impression: No evidence of ischemia. Interpreted by me. Reviewed by me. Administered Medications: 22:32 Drug: Diazepam PO 5 mg PO once Route: PO; tb4 23:15 Follow up: Response: No adverse reaction; Anxiety decreased tb4 22:32 Drug: morphine IVP or IV 4 mg IVP once over 4 mins Route: IVP; Infused Over: 4 mins; tb4 Site: right antecubital; 23:15 Follow up: Response: No adverse reaction; Pain is decreased; RASS: Alert and Calm (0) tb4 22:32 Drug: Ondansetron IVP 4 mg IVP once; over 2 minutes Route: IVP; Site: right antecubital;tb4 23:15 Follow up: Response: No adverse reaction; Nausea is decreased tb4 22:32 Drug: NS 0.9% IV 1000 ml IV at 1000 ml once; to be given as a bolus over 60 minutes tb4 Route: IV; Rate: 1000 ml; Site: right antecubital; 03/17 02:03 Follow up: Response: No adverse reaction; IV Status: Completed infusion tb4 03/16 22:32 Drug: Famotidine IVP 20 mg IVP once; dilute with 10 mL 0.9% NaCl; give over 2 minutes tb4 Route: IVP; Site: right antecubital; 23:15 Follow up: Response: No adverse reaction tb4 03/17 02:02 Drug: Ketorolac IVP 30 mg IVP once Route: IVP; Site: right antecubital; tb4 03:38 Follow up: Response: No adverse reaction tb4 02:02 Drug: metoCLOPramide IVP 10 mg IVP once; over 1 to 2 minutes Route: IVP; Site: right tb4 antecubital; 03:38 Follow up: Response: No adverse reaction tb4 Disposition Summary: 03/17/25 03:59 Discharge Ordered Notes: Location: Home sp4 Problem: new sp4 Symptoms: have improved sp4 Condition: Stable sp4 Diagnosis - Chest pain, unspecified sp4 - Acute tension type headache, acute noncardiac chest pain, acute anxiety attack sp4 Followup: sp4 - With: Zach Aly MD - When: 7 - 10 days - Reason: Recheck today's complaints Discharge Instructions: - Discharge Summary Sheet sp4 - Nonspecific Chest Pain, Adult, Nxhp-aa-Qtyp sp4 Forms: - Patient Portal Instructions sp4 Prescriptions: - Fioricet 50-300-40 mg Oral capsule - take 1 capsule ORAL route 3 times per day as needed for pain; 30 capsule; sp4 Refills: 0, Product Selection Permitted - Valium 5 mg Oral tablet - take 1 tablet ORAL route once daily As needed PRN anxiety; 12 tablet; Refills: sp4 0, Product Selection Permitted Signatures: Dispatcher [employer] Smith Yusuf MD MD sp4 Mar Russo RN RN tb4 Corrections: (The following items were deleted from the chart) 03/16 21:50 21:50 BASIC METABOLIC PANEL+C.LAB.BRZ ordered. EDMS EDMS 21:50 21:50 CBC+H.LAB.BRZ ordered. EDMS EDMS 21:50 21:50 HEPATIC FUNCTION+C.LAB.BRZ ordered. EDMS EDMS 21:50 21:50 MAGNESIUM+C.LAB.BRZ ordered. EDMS EDMS 21:50 21:50 PROBNP+C.LAB.BRZ ordered. EDMS EDMS 21:50 21:50 PROTIME (+INR)+COAG.LAB.BRZ ordered. EDMS EDMS 21:50 21:50 Troponin High Sensitivity+C.LAB.BRZ ordered. EDMS EDMS 21:50 21:50 Chest Single View+RAD.RAD.BRZ ordered. EDMS EDMS 23:26 23:23 PMHx: None; tb4 tb4 03/17 04:18 03/16 21:50 Test, Urine+UC.LAB.BRZ ordered. EDMS EDMS
--- NOTE | 2025-03-17 04:00 | ER ---
Nurse's Notes [facility] Name: Elena Gracia Age: 44 yrs Sex: Female : 1980 Arrival Date: 03/16/2025 Time: 21:43 Bed IW10 Private MD: Diagnosis: Chest pain, unspecified;Acute tension type headache, acute noncardiac chest pain, acute anxiety attack Presentation: 03/16 21:58 Chief complaint: EMS states: Patient c/o chest pain, numbness to face and hands, and tb4 generalized body aches that began at 1630. Coronavirus screen: At this time, the client does not indicate any symptoms associated with coronavirus-19. Ebola Screen: No symptoms or risks identified at this time. Initial Sepsis Screen: Does the patient meet any 2 criteria? No. Patient's initial sepsis screen is negative. Does the patient have a suspected source of infection? No. Patient's initial sepsis screen is negative. Risk Assessment: Do you want to hurt yourself or someone else? Patient reports no desire to harm self or others. Onset of symptoms was April 16, 2025. Care prior to arrival: None. Activity prior to arrival: None. 21:58 Method Of Arrival: EMS: [facility] tb4 21:58 Acuity: RAMA 3 tb4 Triage Assessment: 21:58 General: Appears uncomfortable, Behavior is calm, cooperative. Pain: Complains of pain tb4 in chest and generalized body aches Pain does not radiate. Pain currently is 10 out of 10 on a pain scale. Quality of pain is described as sharp, Pain began suddenly, Is continuous, Alleviated by nothing. EENT: No deficits noted. No signs and/or symptoms were reported regarding the EENT system. Neuro: Level of Consciousness is awake, alert, obeys commands, Oriented to person, place, time, situation, Child And Adolescent Therapist are equal bilaterally Moves all extremities. Full function Gait is steady, Speech is normal, Facial symmetry appears normal, Pupils are PERRLA, Stroke assessment done, no s/s found. Cardiovascular: Patient's skin is warm and dry. Rhythm is regular. Respiratory: Airway is patent Respiratory effort is even, unlabored, Respiratory pattern is regular, symmetrical. GI: No deficits noted. No signs and/or symptoms were reported involving the gastrointestinal system. : No deficits noted. No signs and/or symptoms were reported regarding the genitourinary system. Derm: No deficits noted. No signs and/or symptoms reported regarding the dermatologic system. Skin is intact, is healthy with good turgor, Skin is dry, Skin is normal, Skin temperature is warm. Musculoskeletal: No deficits noted. No signs and/or symptoms reported regarding the musculoskeletal system. Circulation, motion, and sensation intact. Range of motion: intact in all extremities, Reports numbness in To face and fingers. PANEL SEWER: 21:58 Not tb4 Historical: - Allergies: 23:23 No Known Allergies; tb4 - Home Meds: 23:23 prednisone 20 mg Oral tablet 1 tab daily [Active]; hydroxychloroquine 200 mg oral tb4 tablet 1.5 tabs daily [Active]; - PSHx: 23:23 None; tb4 - Immunization history:: Adult Immunizations up to date. - Infectious Disease History:: Denies. - Family history:: not pertinent. - Social history:: Smoking status: Patient denies any tobacco usage or history of. Patient uses alcohol, occasionally. Patient/guardian denies using tobacco products. Screenin:[facility] ED Fall Risk Assessment (Adult) History of falling in the last 3 months, tb4 including since admission No falls in past 3 months (0 pts) Confusion or Disorientation No (0 pts) Intoxicated or Sedated No (0 pts) Impaired Gait No (0 pts) Mobility Assist Device Used No (0 pt) Altered Elimination No (0 pt) Score/Fall Risk Level 0 - 2 = Low Risk Oriented to surroundings, Maintained a safe environment. Abuse screen: Denies threats or abuse. Denies injuries from another. Nutritional screening: No deficits noted. On. Tuberculosis screening: No symptoms or risk factors identified. Assessment: 03/17 00:30 Reassessment: Patient is alert, oriented x 3, equal unlabored respirations, skin tb4 warm/dry/pink. Patient states symptoms have not improved. General: Appears uncomfortable, Behavior is calm, cooperative. Pain: Complains of pain in top of head, chest, and generalized body aches Pain does not radiate. Pain currently is 8 out of 10 on a pain scale. Quality of pain is described as sharp, Pain began suddenly, Is continuous. Neuro: Level of Consciousness is awake, alert, obeys commands, Oriented to person, place, time, situation, Appropriate for age Child And Adolescent Therapist are equal bilaterally Moves all extremities. Full function Weakness generalized. Gait is steady, Speech is normal, Facial symmetry appears normal. Cardiovascular: Capillary refill < 3 seconds is brisk in bilateral fingers Patient's skin is warm and dry. Respiratory: Airway is patent Respiratory effort is even, unlabored, Respiratory pattern is regular, symmetrical. GI: No deficits noted. No signs and/or symptoms were reported involving the gastrointestinal system. : No deficits noted. No signs and/or symptoms were reported regarding the genitourinary system. EENT: No deficits noted. No signs and/or symptoms were reported regarding the EENT system. Derm: No deficits noted. No signs and/or symptoms reported regarding the dermatologic system. Skin is intact, is healthy with good turgor, Skin is dry, Skin is normal, Skin temperature is warm. Musculoskeletal: Circulation, motion, and sensation intact. Range of motion: intact in all extremities. Vital Signs: 03/16 22:00 BP 124 / 82; Pulse 85; Resp 17; Temp 99.1(O); Pulse Ox 96% on R/A; Weight 55.34 kg (R); tb4 Height 4 ft. 6 in. ; Pain 10/10; 23:18 BP 125 / 85; Pulse 88; Resp 16; Temp 99.2(O); Pulse Ox 97% on R/A; tb4 03/17 00:00 BP 118 / 82; Pulse 95; Resp 15; Pulse Ox 98% ; vc1 01:00 BP 103 / 65; Pulse 75; Resp 18; Pulse Ox 100% on R/A; tb4 02:08 BP 111 / 68; Pulse 91; Resp 16; Pulse Ox 100% on R/A; tb4 03:00 BP 95 / 61; Pulse 72; Resp 17; Pulse Ox 98% on R/A; Pain 6/10; tb4 04:54 BP 97 / 64; Pulse 88; Resp 19; Pulse Ox 97% on R/A; tb4 03/16 22:00 Body Mass Index 28.36 (55.34 kg, 139.7 cm) tb4 03/16 22:00 Pain Scale: Adult tb4 03:00 Pain Scale: Adult tb4 [place] Coma Score: 20:31 Eye Response: spontaneous(4). Motor Response: obeys commands(6). Verbal Response: sp4 oriented(5). Total: 15. ED Course: 03/16 21:45 Patient arrived in ED. rk3 21:47 Smith Pitt MD is Attending Physician. sp4 22:13 XRAY Chest (1 view) In Process Unspecified. EDMS 22:31 Inserted saline lock: 20 gauge in right antecubital area, using aseptic technique. tb4 Blood collected. Flushed with 10 mL NS. 22:31 Initial lab(s) drawn, by me, sent to lab. tb4 23:23 No provider procedures requiring assistance completed. tb4 23:23 Patient has correct armband on for positive identification. Bed in low position. Call tb4 light in reach. Side rails up X 1. Adult w/ patient. Client placed on continuous cardiac and pulse oximetry monitoring. NIBP monitoring applied. court recording monitor on. Door closed. Lights dimmed. Warm blanket given. 23:30 Triage completed. tb4 03/17 00:10 Arm band placed on right wrist. vc1 01:14 CT Head Brain wo Cont In Process Unspecified. EDMS 03:58 Zach Aly MD is Referral Physician. sp4 05:01 IV discontinued, intact, bleeding controlled, No redness/swelling at site. Pressure tb4 dressing applied. 05:01 Provided Education on: Take medication as prescribed. tb4 Administered Medications: 03/16 22:32 Drug: Diazepam PO 5 mg PO once Route: PO; tb4 23:15 Follow up: Response: No adverse reaction; Anxiety decreased tb4 22:32 Drug: morphine IVP or IV 4 mg IVP once over 4 mins Route: IVP; Infused Over: 4 mins; tb4 Site: right antecubital; 23:15 Follow up: Response: No adverse reaction; Pain is decreased; RASS: Alert and Calm (0) tb4 22:32 Drug: Ondansetron IVP 4 mg IVP once; over 2 minutes Route: IVP; Site: right antecubital;tb4 23:15 Follow up: Response: No adverse reaction; Nausea is decreased tb4 22:32 Drug: NS 0.9% IV 1000 ml IV at 1000 ml once; to be given as a bolus over 60 minutes tb4 Route: IV; Rate: 1000 ml; Site: right antecubital; 03/17 02:03 Follow up: Response: No adverse reaction; IV Status: Completed infusion tb4 03/16 22:32 Drug: Famotidine IVP 20 mg IVP once; dilute with 10 mL 0.9% NaCl; give over 2 minutes tb4 Route: IVP; Site: right antecubital; 23:15 Follow up: Response: No adverse reaction tb4 03/17 02:02 Drug: Ketorolac IVP 30 mg IVP once Route: IVP; Site: right antecubital; tb4 03:38 Follow up: Response: No adverse reaction tb4 02:02 Drug: metoCLOPramide IVP 10 mg IVP once; over 1 to 2 minutes Route: IVP; Site: right tb4 antecubital; 03:38 Follow up: Response: No adverse reaction tb4 Medication: 03/16 22:00 VIS not applicable for this client. tb4 Outcome: 03/17 03:59 Discharge ordered by . sp4 05:01 Discharged to home ambulatory, with family, tb4 05:01 Condition: stable 05:01 Discharge instructions given to patient, family, Instructed on discharge instructions, follow up and referral plans. Demonstrated understanding of instructions, follow-up care, medications, Prescriptions given X 2, 05:01 Patient left the ED. tb4 Signatures: Dispatcher [employer] EDAmanda Pickett RN RN vc1 Smith Pitt MD MD sp4 Bev Isabel Rozana rk3 Mar Russo RN RN tb4 Corrections: (The following items were deleted from the chart) 03/16 23:26 23:23 PMHx: None; tb4 tb4 03/17 04:18 03/16 23:51 Test, Urine+UC.LAB.BRZ drawn and sent. melissa DOE
[2025-03-17 05:53] VITALS: TEMP 99.2
[2025-03-17 05:59] VITALS: BP 97/64; O2SAT 97
== END 2025-03-17 05:01 | disposition home or self-care (01) ==
LOC: ER 21:43
DX: R07.89 Other chest pain (principal); F41.9 Anxiety disorder, unspecified; G44.209 Tension-type headache, unspecified, not intractable
CPT/HCPCS: 96361; 93005; 85025; 80048; 36415; 83735; 84703; 85610; 80076; 84443; 84484 ×2; 84439; 83880; 70450; 71045; 96375; 96374; 99285; J1885; J2765; J2405; J7030